=== PATIENT | female | born 2005 | race Hispanic/Latino ===

== ENCOUNTER 2024-05-23 22:54 | Emergency (ER) | payer OTHER ==
[~2024-05-23] VITALS: Ht 154.9 cm; Wt 69.9 kg
[2024-05-23 23:24] LABS: BASOPHILS # (AUTO) 0.02 K/uL (0.00-0.20); BASOPHILS % (AUTO) 0.2 % (0.0-5.0); EOSINOPHILS # (AUTO) 0.09 K/uL (0.00-0.70); HEMATOCRIT 32.9 % (36-48); IMMATURE GRANULOCYTE ABSOLUTE 0.02 K/uL (0-1); LYMPHOCYTES # (AUTO) 2.9 K/uL (1.0-4.8); LYMPHOCYTES % (AUTO) 31.6 % (21.0-51.0); MEAN CORPUSCULAR HEMOGLOBIN 29.3 pg (27.0-33.0); MEAN CORPUSCULAR HGB CONC 33.7 g/dL (32.0-36.0); MEAN CORPUSCULAR VOLUME 86.8 fL (80-100); MONOCYTES # (AUTO) 0.8 K/uL (0.1-1.0); MONOCYTES % (AUTO) 8.2 % (3.0-13.0); NEUTROPHILS # (AUTO) 5.4 K/uL (1.8-7.7); NEUTROPHILS % (AUTO) 58.8 % (40.0-77.0); PLATELET COUNT (AUTO) 236 K/uL (130-400); RED BLOOD CELL COUNT(AUTO) 3.79 MIL/uL (4.00-5.50); WHITE BLOOD COUNT (AUTO) 9.2 K/uL (4.8-10.8)
[2024-05-23 23:28] LABS: APPEARANCE,URINE CLEAR (CLEAR); BILIRUBIN,URINE NEGATIVE (NEGATIVE); COLOR,URINE LIGHT-YELLOW (YELLOW); GLUCOSE, URINE (UA) NEGATIVE (NEGATIVE); KETONES,URINE NEGATIVE (NEGATIVE); LEUKOCYTE ESTERASE ,URINE NEGATIVE Leu/uL (NEGATIVE); NITRATE,URINE NEGATIVE (NEGATIVE); OCCULT BLOOD,URINE SMALL (NEGATIVE); PH,URINE 6.5 (5.0-8.0); PROTEIN,URINE NEGATIVE (NEGATIVE); UROBILINOGEN,URINE 0.2 mg/dL (0.2-1.0)
[2024-05-23 23:33] LABS: ADD UA MICROSCOPIC YES
[2024-05-23 23:34] LABS: HCG,QUALITATIVE URINE NEGATIVE (NEGATIVE); MUCUS,URINE RARE LPF (None Seen); SQUAMOUS EPITHELIAL CELL,UR RARE /HPF (0-2); WBC,URINE 0-1 /HPF (0-1)
[2024-05-23 23:38] LABS: CREATININE 0.7 mg/dL (0.5-1.0); POTASSIUM 3.3 mmol/L (3.5-5.1)
[2024-05-23] MEDS: 0.9%NACL 1000ML 1,000 ML IV ONE (23:50)
[2024-05-23] MEDS: ondanSETRON 4MG INJ IVP ONE (23:50)
[2024-05-23] MEDS: PANTOPrazole 40 MG/VIAL IVP ONE (23:50)
[2024-05-23] MEDS: acetaMINOPHEN 500 MG TABLET PO ONE (23:51)
[2024-05-23] MEDS: PoTASSium BIcarbonate/CIT AC 25 MEQ TABLET.EFF PO ONE (23:57)
[2024-05-24] MEDS ORDERED: ONDA-243 PO (00:28)
[2024-05-24] MEDS ORDERED: DICY20TA2 PO (00:28)
--- NOTE | 2024-05-24 00:28 | ERN ---
ED Note History of Present Illness Stated Complaint: ABD PAIN, HEADACHE Chief Complaint: Abdominal Pain Time Seen by MD: 22:56 Time Seen by Midlevel: 22:56 Dictation: The patient is a 18-year-old female with history of hyperlipidemia who presents to the emergency department with complaints of nausea, nonbloody vomiting, generalized abdominal pain, headache for three days. Patient denies any fevers, denies any diarrhea, denies any head trauma, denies any urinary discomfort. Patient reports headache to be frontal radiating to the back. Allergies: Coded Allergies: No Known Allergies (Unverified Allergy, Unknown, 05/23/24) Past Medical History Past Medical History: No Pertinent History Surgical History: None LMP: May 08, 2024 RN Note Reviewed/Agreed w/PFSH: Yes Review of System Dictation Constitutional: Negative for fever,chills, and weight loss Eyes: Negative for injury, pain,redness, and discharge ENT: Negative for injury,pain or swelling Cardiovascular: Negative for chest pain, palpitations, and edema Respiratory: Negative for shortness of breath, cough, and wheezing, Abdomen/GI: Negative for diarrhea, and constipation positive for abdominal pain, nausea, vomiting Back: Negative for injury and pain : Negative for injury, bleeding and discharge MS/Extremity: Negative for injury and deformity Skin: Negative for rash, and discoloration Neuro: Negative for weakness, numbness, tingling, and seizure positive for headache Psych: Negative for suicide ideation, homicidal ideation, and hallucinations Initial Vital Sign VS Vital Signs Date Time Temp Pulse Resp B/P (MAP) Pulse Ox O2 Delivery O2 Flow Rate FiO2 05/23/24 22:55 97.7 84 18 122/92 99 Room Air 05/23/24 23:40 0 21 Physical Exam Dictation Vital Signs reviewed General Appearance: Alert, oriented x 3, no acute distress, well developed, nourished. Head and Face: non-traumatic. Eyes: PERRL, pink conjunctivas, eyelid no trauma, anterior chamber with arcus senilis. Ears: Pinnas intact and no signs of trauma or erythema ear canals clear and no discharge TM no erythema Nose: No discharge, no bleeding. Oropharynx: Mouth normal, tongue pink. pharynx clear,no erythema, tonsils no exudates, no abscesses noted, mucous membrane moist Neck: Supple, non-tender, no thyromegaly, no masses, no JVD, no bruits Breast:Deferred Chest:No tenderness, no crepitus, no paradoxical movement, no retractions Lungs:Clear, well-ventilated, symmetric, no rales, no wheezing, no rhonchi, no stridor, good breath sounds bilaterally Heart: Regular rate, regular rhythm, no murmur, no gallops Vascular: no peripheral edema, Abdomen: Soft, positive bowel sounds, nondistended, no guarding, nontender, no rebound, no masses no hepatomegaly, no splenomegaly, no Sandy's sign, no hernias. Rectal: Deferred Genital: Deferred Neurological: Normal speech, motor function intact, sensory function intact Musculoskeletal: Neck nontender, full range of motion, back nontender, full range of motion, Extremities: nontender, full range of motion Skin: Color pink, dry, no turgor, no rash, no lacerations, no abrasions, no contusions. Lymphatic: Deferred Results (Laboratory/Radiology) Laboratory/Radiology Laboratory Tests Test 05/23/24 23:17 White Blood Count 9.2 K/uL (4.8-10.8) Red Blood Count 3.79 MIL/uL (4.00-5.50) L Hemoglobin 11.1 g/dL (12.0-16.0) L Hematocrit 32.9 % (36-48) L Mean Corpuscular Volume 86.8 fL (80-100) Mean Corpuscular Hemoglobin 29.3 pg (27.0-33.0) Mean Corpuscular Hemoglobin Concent 33.7 g/dL (32.0-36.0) Red Cell Distribution Width 12.0 % (11.0-15.5) Platelet Count 236 K/uL (130-400) Mean Platelet Volume 11.7 fL (7.5-10.5) H Immature Granulocyte % (Auto) 0.2 % (0-1) Neutrophils (%) (Auto) 58.8 % (40.0-77.0) Lymphocytes (%) (Auto) 31.6 % (21.0-51.0) Monocytes (%) (Auto) 8.2 % (3.0-13.0) Eosinophils (%) (Auto) 1.0 % (0.0-8.0) Basophils (%) (Auto) 0.2 % (0.0-5.0) Neutrophils # (Auto) 5.4 K/uL (1.8-7.7) Lymphocytes # (Auto) 2.9 K/uL (1.0-4.8) Monocytes # (Auto) 0.8 K/uL (0.1-1.0) Eosinophils # (Auto) 0.09 K/uL (0.00-0.70) Basophils # (Auto) 0.02 K/uL (0.00-0.20) Absolute Immature Granulocyte (auto 0.02 K/uL (0-1) Nucleated Red Blood Cells 0.0 % (0.0-0.19) Urine Color LIGHT-YELLOW (YELLOW) Urine Appearance CLEAR (CLEAR) Urine pH 6.5 (5.0-8.0) Urine Specific Logan 1.010 (1.001-1.031) Urine Protein NEGATIVE mg/dL (NEGATIVE) Urine Glucose (UA) NEGATIVE mg/dL (NEGATIVE) Urine Ketones NEGATIVE mg/dL (NEGATIVE) Urine Occult Blood SMALL (NEGATIVE) H Urine Nitrate NEGATIVE (NEGATIVE) Urine Bilirubin NEGATIVE mg/dL (NEGATIVE) Urine Urobilinogen 0.2 mg/dL (0.2-1.0) Urine Leukocyte Esterase NEGATIVE Estefany/uL Urine RBC 2-5 /HPF (0-1) H Urine WBC 0-1 /HPF (0-1) Urine Squamous Epithelial Cells RARE /HPF (0-2) Urine Bacteria None /HPF (None Seen) Urine HCG, Qualitative NEGATIVE (NEGATIVE) Sodium Level 136 mmol/L (136-145) Potassium Level 3.3 mmol/L (3.5-5.1) L Chloride Level 102 mmol/L (101-111) Carbon Dioxide Level 28 mmol/L (21-32) Blood Urea Nitrogen 6 mg/dL (7-18) L Creatinine 0.7 mg/dL (0.5-1.0) Glomerular Filtration Rate Calc 128 mL/min (>90) Random Glucose 81 mg/dL (70-105) Total Calcium 8.7 mg/dL (8.5-10.1) Lipase 30 U/L (16-77) Labs Reviewed?: Yes ED Course ED Course Orders Procedure Category Date Status Time Cbc With Differential LAB 05/23/24 Complete 23:05 ,Urine Test LAB 05/23/24 Complete 23:05 Urinalysis Profile LAB 05/23/24 Complete 23:05 0.9%Nacl 1000ml (Ns PHA 05/23/24 Complete 1000ml) 23:30 Ondansetron 4mg Inj PHA 05/23/24 Complete (Zofran 4mg Inj) 23:30 Pantoprazole 40mg Inj PHA 05/23/24 Complete (Protonix 40mg Inj 23:30 Lipase LAB 05/23/24 Complete 23:05 Basic Metabolic Panel LAB 05/23/24 Complete 23:05 Acetaminophen 500mg PHA 05/23/24 Complete Tab (Tylenol 500mg T 23:30 Potassium Bicarb/Cit PHA 05/24/24 Complete Ac 25meq (K-Lyte Ta 00:00 Current Medications Medications (Trade) Dose Ordered Sig/Larry Route PRN Reason Start Time Stop Time Status Last Admin Dose Admin Acetaminophen (TYLenol 500MG TAB) 1,000 mg ONCE ONCE PO 05/23/24 23:30 05/23/24 23:31 DC 05/23/24 23:51 Ondansetron HCl (zoFRAN 4MG INJ) 4 mg ONCE ONCE IVP 05/23/24 23:30 05/23/24 23:31 DC 05/23/24 23:50 Pantoprazole Sodium (PROTonix 40MG INJ) 40 mg ONCE ONCE IVP 05/23/24 23:30 05/23/24 23:31 DC 05/23/24 23:50 Potassium Bicarbonate (K-Lyte Tablet Eff 25 Meq Tablet.eff) 25 meq ONCE ONCE PO 05/24/24 00:00 05/24/24 00:01 DC 05/23/24 23:57 Sodium Chloride 1,000 ml @ 0 mls/hr ONCE ONCE IV 05/23/24 23:30 05/23/24 23:31 DC 05/23/24 23:50 Vital Signs Date Time Temp Pulse Resp B/P (MAP) Pulse Ox O2 Delivery O2 Flow Rate FiO2 05/23/24 23:40 97.0 78 20 121/56 97 Room Air* 0 21 05/23/24 22:55 97.7 84 18 122/92 99 Room Air Medical Decision Making MDM The patient is a 18-year-old female with history of hyperlipidemia who presents to the emergency department with complaints of nausea, nonbloody vomiting, generalized abdominal pain, headache for three days. Patient denies any fevers, denies any diarrhea, denies any head trauma, denies any urinary discomfort. Patient reports headache to be frontal radiating to the back. CBC showed no leukocytosis, mild normocytic anemia, chemistry showed mild hypokalemia, was replaced in ED, normal renal function, negative lipase, urinalysis unremarkable. Patient continues in no distress, neurologically intact. No more vomiting in ER. Tolerated p.o. intake. Patient with a nontender abdomen, nontoxic appearance will be discharged to follow up with PCP. Differential diagnosis: Gastroenteritis, UTI, dehydration, electrolyte imbalance Need for hospitalization: Patient does not meet criteria for hospitalization. There are no social concerns with this patient. DX & DISP Disposition: Discharge Departure Impression: Primary Impression: Gastroenteritis Additional Impressions: Hypokalemia, Nausea and vomiting, Headache Condition: Stable Scripts Dicyclomine HCl (Bentyl) 20 Mg Tab 1 TAB PO TID for irritable bowel symptoms for 10 Days, #30 TAB 0 Refills Prov: THEODORA MEJIAS 05/24/24 Ondansetron (Ondansetron Odt) 4 Mg Tab.rapdis 4 MG PO Q6HPRN PRN for nausea, #16 TAB 0 Refills Prov: THEODORA MEJIAS 05/24/24 Additional Instructions: Please follow up with primary doctor in 1-2 days. If symptoms worsen please return to ER. FOLLOW-UP WITH PRIMARY CARE PROVIDER IN 1 TO 2 DAYS. TAKE MEDICATIONS DIRECTED HERE IN THE EMERGENCY ROOM. OKAY TO CONTINUE HOME MEDICATIONS UNLESS OTHERWISE DISCUSSED DURING YOUR VISIT IN THE EMERGENCY ROOM TODAY. RETURN TO YOUR NEAREST EMERGENCY ROOM IF SYMPTOMS WORSEN OR IF THERE IS NO IMPROVEMENT. CALL 911 IF YOU NEED IMMEDIATE ASSISTANCE. TAKE TYLENOL OR MOTRIN [id number] NEEDED AND IF NO CONTRAINDICATIONS ARE PRESENT. INCREASE ORAL HYDRATION. A WOUND CULTURE OR URINE CULTURE WAS ORDERED HERE IN THE EMERGENCY ROOM DEPARTMENT PLEASE FOLLOW-UP WITH PRIMARY CARE PROVIDER AND ADVISE THEM TO GET REPEAT PORTS FROM OUR FACILITY. IF YOU HAD ANY GINA WRAP/SPLINTS THAT WERE APPLIED HERE, PLEASE DO NOT REMOVE THEM UNTIL YOU SEE YOUR PRIMARY CARE OR SPECIALTY. Referrals: SELF,REFERRAL (PCP) Time of Disposition: 00:27 I have reviewed the case, and I agree with, Diagnosis and Plan THEODORA MEJIAS May 24, 2024 00:28
[2024-05-24 00:39] VITALS: BP 123/74; PULSE 71; RESP 18; TEMP 97.7; O2SAT 97
== END 2024-05-24 00:47 | disposition home or self-care (01) ==
LOC: EDH 22:54
DX: K52.9 Noninfective gastroenteritis and colitis, unspecified (principal); E87.6 Hypokalemia; R51.9 Headache, unspecified
CPT/HCPCS: 99284; 96374; 96375; 80048; 83690; 85025; 81001; 81025; 36415; J7030; J2405; J2470